=== PATIENT | female | born 1955 | race Caucasian/White ===

== ENCOUNTER → 2016-11-27 | Outpatient (CLI) | payer OTHER ==
--- NOTE | 2016-11-27 15:20 | REPMRS ---
Patient History The patient states she had a clinical breast exam in 11/2016. Patient is postmenopausal and has history of melanoma cancer at age 54. Family history of prostate cancer in father at age 50 or over, colorectal cancer in maternal aunt at age 50 or over, breast cancer in maternal cousin at age 50 or over, prostate cancer in brother under age 50, prostate cancer in maternal uncle at age 50 or over, and pancreatic cancer in niece at age 35. Digital Woman Screen Mammo: November 27, 2016 - Exam #: [id number] Bilateral CC and MLO view(s) were taken. Technologist: Dalila Phipps, Technologist Prior study comparison: August 24, 2015, digital woman screen mammo performed at [facility]. October 18, 2013, digital woman screen mammo performed at [facility]. September 08, 2012, digital woman screen mammo performed at [facility]. FINDINGS: There are scattered fibroglandular densities. There has been no change in the appearance of the mammogram from the prior studies. There is a mild amount of scattered fibroglandular density which is fairly symmetric. There is no interval development of dominant mass, architectural distortion, or clustered microcalcification suggestive of malignancy. ASSESSMENT: BI-RADS/ACR category 1 mammogram. Negative. Recommendation Routine screening mammogram in 1 year (for women over age 40). This mammogram was interpreted with the aid of an FDA-approved computer-aided dectection system. Electronically Signed By: Ga Gonzalez MD 11/27/16 [id number]
== END ==
LOC: M WHC 14:15
PROVIDERS: ATTEND Nurse Practitioner Family
DX: Z12.31 Encounter for screening mammogram for malignant neoplasm of breast (principal); Z78.0 Asymptomatic menopausal state